=== PATIENT | male | born 1980 | race Caucasian/White ===

== ENCOUNTER 2016-11-04 11:32 | Emergency (ER) | payer OTHER ==
[~2016-11-04] VITALS: Ht 175.3 cm; Wt 102.4 kg
[~2016-11-04 11:32] MED LIST: AUGMENTIN875 MG PO; BUSPAR15 MG PO; BUSPAR30 MG PO; DESYREL100 MG PO; FLEXERIL10 MG PO; LITE COAT ASPI325 M1 PO; LORTAB 5-325 M1 EACH PO; MOTRIN800 MG PO; NAPROSYN500 MG PO; NORCO 5/3251 TABLET PO; OLANZAPINE10 MG PO; OLANZAPINE20 MG PO; PERCOCET 10/1 TABLET PO; PERCOCET 5/31 TABLET PO; QUETIAPINE FUM400 MG PO; ROXICODONE5 MG PO; SEROQUEL XR400 MG PO; SEROQUEL100 MG PO; TRAZODONE HCL50 MG PO; ULTRAM50 MG PO; XANAX1 MG PO; ZOLPIDEM TARTRA10 MG PO; ZYPREXA10 MG PO; ZYPREXA5 MG PO
[2016-11-04] MEDS ORDERED: MOTRIN600 MG PO (13:53)
[2016-11-04] MEDS ORDERED: LORTAB 5-325 M1 EACH PO (13:53)
[2016-11-04] MEDS ORDERED: BACLOFEN10 MG PO (13:53)
[2016-11-04 14:21] VITALS: BP 127/78
== END 2016-11-04 14:23 | disposition home or self-care (01) ==
LOC: EME 11:32
DX: S43.401A Unspecified sprain of right shoulder joint, initial encounter (principal); X58.XXXA Exposure to other specified factors, initial encounter; Y93.83 Activity, rough housing and horseplay; F17.200 Nicotine dependence, unspecified, uncomplicated
CPT/HCPCS: 73030; 99281; 99283

== ENCOUNTER 2017-11-10 17:34 | Emergency (ER) | payer OTHER ==
[~2017-11-10] VITALS: Ht 175.3 cm; Wt 86.4 kg
[~2017-11-10 17:34] MED LIST changes: +BACLOFEN10 MG PO; +MOTRIN600 MG PO
[2017-11-10] MEDS ORDERED: PERCOCET 5/31 TABLET PO (18:54)
[2017-11-10 19:06] VITALS: BP 138/86
== END 2017-11-10 19:09 | disposition home or self-care (01) ==
LOC: EME 17:34
DX: M25.511 Pain in right shoulder (principal); S66.911A Strain of unspecified muscle, fascia and tendon at wrist and hand level, right hand, initial encounter; X50.9XXA Other and unspecified overexertion or strenuous movements or postures, initial encounter; Y99.0 Civilian activity done for income or pay; Z87.39 Personal history of other diseases of the musculoskeletal system and connective tissue
CPT/HCPCS: 73030; 73130; 99281; 99284

== ENCOUNTER 2017-11-25 02:09 | Emergency (ER) | payer OTHER ==
[~2017-11-25] VITALS: Ht 175.3 cm; Wt 82.6 kg
[2017-11-25] MEDS ORDERED: PERCOCET 5/31 TABLET PO (02:55)
[2017-11-25 03:06] VITALS: BP 149/100
[2017-11-25] MEDS ORDERED: VALIUM5 MG PO (20:36)
== END 2017-11-25 03:07 | disposition home or self-care (01) ==
LOC: EME → EDBD 02:09 → EME 03:07
DX: S43.004A Unspecified dislocation of right shoulder joint, initial encounter (principal); X50.1XXA Overexertion from prolonged static or awkward postures, initial encounter; F17.200 Nicotine dependence, unspecified, uncomplicated
CPT/HCPCS: 71045; 73030; 99281; 99284; J3010

== ENCOUNTER 2017-11-25 18:26 | Emergency (ER) | payer OTHER ==
[~2017-11-25] VITALS: Ht 175.3 cm; Wt 84.1 kg
[2017-11-25 18:59] VITALS: BP 129/109
[2017-11-25] MEDS ORDERED: VALIUM5 MG PO (20:36)
== END 2017-11-25 20:54 | disposition home or self-care (01) ==
LOC: EME 18:26
DX: M24.411 Recurrent dislocation, right shoulder (principal); F17.200 Nicotine dependence, unspecified, uncomplicated
CPT/HCPCS: 73030; 99281; 99283

== ENCOUNTER 2017-11-27 10:27 | Emergency (ER) | payer OTHER ==
[~2017-11-27] VITALS: Ht 175.3 cm; Wt 86.2 kg
[~2017-11-27 10:27] MED LIST changes: +VALIUM5 MG PO
[2017-11-27 10:43] VITALS: BP 121/74
== END 2017-11-27 11:39 | disposition home or self-care (01) ==
LOC: EME 10:27
DX: M25.511 Pain in right shoulder (principal); Z87.39 Personal history of other diseases of the musculoskeletal system and connective tissue; F31.9 Bipolar disorder, unspecified; F17.200 Nicotine dependence, unspecified, uncomplicated
CPT/HCPCS: 73030; 99281; 99284

== ENCOUNTER 2017-12-21 22:42 | Inpatient (IN) | payer OTHER ==
[~2017-12-21] VITALS: Ht 175.3 cm; Wt 90.0 kg
[2017-12-21 23:12] LABS: HEMATOCRIT 43.8 % (38.0-50.0); HEMOGLOBIN 15.5 G/DL (12.5-16.6); MCHC 35.4 G/DL (30.0-36.0); MCV 101.9 FL (86-99); PLATELET COUNT 238 K/uL (156-360); WHITE BLOOD COUNT 8.7 K/uL (4.1-10.2)
[2017-12-21 23:24] LABS: CHLORIDE 110 mEq/L (99-109); POTASSIUM 3.8 mEq/L (3.7-5.4); SODIUM 143 mEq/L (136-147)
[2017-12-21 23:26] LABS: GLUCOSE 92 mg/dL (70-99)
[2017-12-21 23:29] LABS: SERUM ETHYL ALCOHOL 206 mg/dL
[2017-12-21 23:30] LABS: CREATININE 0.8 mg/dL (0.6-1.3); GFR ESTIMATE (CALCULATED) > 59 mL/min/ (58.99-99999)
[2017-12-21 23:31] LABS: UREA NITROGEN (BUN) 9 mg/dL (9-23)
[2017-12-21 23:33] LABS: AMPHETAMINE NEGATIVE (500 ng/mL); BARBITURATES NEGATIVE (200 ng/mL); BENZODIAZEPINES NEGATIVE (150 ng/mL); BUPRENORPHINE NEGATIVE (10 ng/mL); COCAINE PRESUMPTIVE POSITIVE (150 ng/mL); METHADONE NEGATIVE (200 ng/mL); METHAMPHETAMINE NEGATIVE (500 ng/mL); OPIATES (MORPHINE) PRESUMPTIVE POSITIVE (100 ng/mL); OXYCODONE NEGATIVE (100 ng/mL); PHENCYCLIDINE NEGATIVE (25 ng/mL); PROPOXYPHENE NEGATIVE (300 ng/mL); THC CANNABINOIDS NEGATIVE (50 ng/mL); TRICYCLIC ANTIDEPRESSANTS NEGATIVE (300 ng/mL)
[2017-12-22] MEDS ORDERED: OXYCODONE HCL10 MG PO (08:07)
[2017-12-22] MEDS ORDERED: ZANAFLEX4 MG PO (08:08)
[2017-12-22 09:40] VITALS: BP 132/75
[2017-12-22 10:15] VITALS: BP 132/75
[2017-12-22 16:32] VITALS: BP 134/77
[2017-12-23 07:51] VITALS: BP 111/67
[2017-12-23] MEDS ORDERED: BUSPAR10 MG PO (12:42)
[2017-12-23] MEDS ORDERED: OLANZAPINE10 MG PO (12:42)
[2017-12-23 16:36] VITALS: BP 132/84
== END 2017-12-23 16:26 | disposition home or self-care (01) | DRG 885 ==
LOC: EME 22:42 → EDOF 12-22 06:56 → 1WEST 12-22 06:56 → ENRESERV 12-22 09:39 → 1WEST 12-22 09:40
DX: F25.0 Schizoaffective disorder, bipolar type (principal); R45.851 Suicidal ideations; F10.129 Alcohol abuse with intoxication, unspecified; Y90.7 Blood alcohol level of 200-239 mg/100 ml; F14.10 Cocaine abuse, uncomplicated; F11.10 Opioid abuse, uncomplicated; F17.200 Nicotine dependence, unspecified, uncomplicated; Z91.14 Patient's other noncompliance with medication regimen
CPT/HCPCS: 80048; 84999; 85027; 90839; 97150 GO; 97165 GO; 99281; 99285; G0480